=== PATIENT | female | born 1945 | race Caucasian/White ===

== ENCOUNTER 2022-11-26 10:42 | Emergency (ER) | payer MEDICARE | END 2022-11-26 12:42 | LOC: KA.ED 10:42 | DX: D69.59 Other secondary thrombocytopenia (principal); D70.2 Other drug-induced agranulocytosis; T45.1X5A Adverse effect of antineoplastic and immunosuppressive drugs, initial encounter; Z79.899 Other long term (current) drug therapy | CPT/HCPCS: 99284 ==